=== PATIENT | female | born 2000 | race Caucasian/White ===

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

== ENCOUNTER → 2021-03-27 | Outpatient (REF) | payer OTHER ==
[~2021-03-27] MED LIST changes: -CEFD1CAP8 PO; +CEFD300C41 PO; +IBUP-1022 PO
== END ==
LOC: M SFHCPLAZ 15:52
PROVIDERS: ATTEND Family Medicine
DX: R11.2 Nausea with vomiting, unspecified (principal)

== ENCOUNTER 2022-06-10 09:26 | Emergency (ER) | payer OTHER ==
[~2022-06-10] VITALS: Ht 165.1 cm; Wt 59.1 kg
[~2022-06-10 09:26] MED LIST changes: +ETON68IM SC; -NEXP1IMP SC
[2022-06-10 09:27] VITALS: BP 116/69
[2022-06-10] MEDS ORDERED: NS 1,000 ML IV ONE (12:10)
[2022-06-10 12:23] LABS: BASO % 0.4 % (0.0-1.0); EOS % 0.2 % (0.0-3.0); HEMATOCRIT 43.1 % (36.0-47.0); HEMOGLOBIN 14.2 g/dl (12.0-15.5); LYMPH % 22.8 % (24.0-44.0); MEAN CORPUSCULAR HEMOGLOBIN 30.7 pg (27.0-33.0); MEAN CORPUSCULAR HGB CONC 32.9 g/dl (32.0-36.5); MEAN CORPUSCULAR VOLUME 93.1 fl (80.0-96.0); MONO # 0.4 10^3/uL (0.0-0.8); MONO % 8.1 % (2.0-8.0); NEUTROPHILS # 3.1 10^3/uL (1.5-8.5); NEUTROPHILS % 68.3 % (36.0-66.0); PLATELET COUNT, AUTOMATED 171 10^3/uL (150-450); RED BLOOD COUNT 4.63 10^6/uL (4.00-5.40); WHITE BLOOD COUNT 4.5 10^3/uL (4.0-10.0)
[2022-06-10 13:31] LABS: ALBUMIN 4.3 GM/DL (3.2-5.2); ALT/SGPT 16 U/L (12-78); BILIRUBIN,DIRECT < 0.1 MG/DL (0.0-0.2); BILIRUBIN,TOTAL 0.5 MG/DL (0.2-1.0); BLOOD UREA NITROGEN 7 MG/DL (7-18); CALCIUM LEVEL 9.3 MG/DL (8.5-10.1); CARBON DIOXIDE LEVEL 28 MEQ/L (21-32); CHLORIDE LEVEL 105 MEQ/L (98-107); CREATININE FOR GFR 0.78 MG/DL (0.55-1.30); GLUCOSE, FASTING 87 MG/DL (70-100); HCG, SERUM QUALITATIVE NEGATIVE (NEGATIVE); LIPASE 28 U/L (73-393); SODIUM LEVEL 135 MEQ/L (136-145); TOTAL PROTEIN 7.8 GM/DL (6.4-8.2)
[2022-06-10] MEDS ORDERED: ISOVUE-370 76% 100ML VIAL As Ordered ONE (13:37)
[2022-06-10 14:00] LABS: GC DNA AMPLIFICATION NEGATIVE (NEGATIVE)
== END 2022-06-10 15:10 | disposition home or self-care (01) ==
LOC: M ED 09:26
DX: R10.30 Lower abdominal pain, unspecified (principal); F17.200 Nicotine dependence, unspecified, uncomplicated; R63.4 Abnormal weight loss; Z91.030 Bee allergy status; Z91.048 Other nonmedicinal substance allergy status
CPT/HCPCS: 74177; 80048; 80076; 83690; 84703; 85025; 87661; 87810; 87850; 96360; 99283; Q9967

== ENCOUNTER → 2024-06-25 | Outpatient (REF) | payer OTHER ==
[~2024-06-25] MED LIST changes: +CEFD1CAP9 PO; -CEFD300C41 PO; +ONDA-282 PO; -ONDA4TAB6 PO
== END ==
LOC: M LAB REF 18:00
PROVIDERS: ATTEND Physician Assistant Medical
DX: J02.9 Acute pharyngitis, unspecified (principal); B34.9 Viral infection, unspecified